=== PATIENT | male | born 1960 | race Caucasian/White ===

== ENCOUNTER 2017-08-31 19:25 | Emergency (ER) | payer MEDICARE, MEDICAID ==
[~2017-08-31] VITALS: Ht 180.3 cm; Wt 95.0 kg
[~2017-08-31 19:25] MED LIST: GABA-529 PO; GLIP5TAB12 PO; HYDR12.529 PO; LISI2.5T47 PO; LORA1TAB PO; METF500T4 PO; OMEP20CA10 PO; SERT-112 PO; TERA2CAP4 PO
[2017-08-31] MEDS ORDERED: SODIUM CHLORIDE 0.9% 1,000 ML IV ONE (19:41)
[2017-08-31] MEDS ORDERED: IPRATROPIUM/ALBUTEROL 0.5-3(2.5)MG/3ML NEB HHN ONE (19:45)
[2017-08-31 20:13] LABS: CLARITY URINE CLEAR (CLEAR); COLOR URINE YELLOW (YELLOW); KETONES URINE NEGATIVE (NEGATIVE); LEUKOCYTE ESTERASE URINE NEGATIVE (NEGATIVE); NITRITE URINE NEGATIVE (NEGATIVE); OCCULT BLOOD URINE NEGATIVE (NEGATIVE); PH URINE 5.5 (4.5-8.0); PROTEIN URINE TRACE (NEGATIVE); SPECIFIC GRAVITY URINE 1.044 (1.005-1.030)
[2017-08-31 20:37] LABS: BASOPHILS % 0.5 % (0.0-2.0); EOSINOPHILS % 1.6 % (0.0-5.0); HEMATOCRIT. 46.9 % (42.0-52.0); HEMOGLOBIN. 16.2 g/dL (14.0-18.0); LYMPHOCYTES % 30.6 % (20.0-50.0); MEAN CORPUSCULAR HEMOGLOBIN 30.6 pg (28.0-32.0); MEAN CORPUSCULAR VOLUME 88.3 fL (80.0-94.0); MEAN PLATELET VOLUME 8.4 fl (7.4-10.4); MONOCYTES % 8.8 % (2.0-8.0); NEUTROPHILS % 58.5 % (40.0-76.0); PLATELET 194 x1000/uL (130-400); RED BLOOD CELL COUNT 5.31 mill/uL (4.7-6.1)
[2017-08-31 20:44] LABS: INR 1.1; PROTHROMBIN TIME 10.9 sec (9.4-11.6)
[2017-08-31 20:45] LABS: CHLORIDE 102 mEq/L (98-107)
[2017-09-01 02:40] VITALS: BP 147/85
== END 2017-09-01 02:55 | disposition home or self-care (01) ==
LOC: ER 19:25
DX: J20.9 Acute bronchitis, unspecified (principal); E11.65 Type 2 diabetes mellitus with hyperglycemia; F41.9 Anxiety disorder, unspecified; F32.9 Major depressive disorder, single episode, unspecified; E78.00 Pure hypercholesterolemia, unspecified; I10 Essential (primary) hypertension; F17.200 Nicotine dependence, unspecified, uncomplicated; F10.20 Alcohol dependence, uncomplicated; Z71.6 Tobacco abuse counseling; Z79.84 Long term (current) use of oral hypoglycemic drugs
CPT/HCPCS: 36415; 71045; 80053; 81003; 85025; 85610; 87804; 93005; 96360; 99285; J7030

== ENCOUNTER 2018-12-17 12:25 | Emergency (ER) | payer MEDICARE, OTHER ==
[~2018-12-17] VITALS: Ht 180.3 cm; Wt 84.0 kg
[~2018-12-17 12:25] MED LIST changes: +METF-414 PO; -METF500T4 PO; -OMEP20CA10 PO; +OMEP20CA5 PO
[2018-12-17] MEDS ORDERED: SODIUM CHLORIDE 0.9% 1,000 ML IV ONE ×2 (13:40→18:00)
[2018-12-17] MEDS ORDERED: FAMOTIDINE 20MG/2ML VIAL IV STA (13:40)
[2018-12-17] MEDS ORDERED: MAGNESIUM/ALUMINUM HYDROXIDE/SIMETHICONE 30ML UDC PO STA (13:40)
[2018-12-17] MEDS ORDERED: LORAZEPAM 1MG TABLET PO ONE ×2 (13:45→16:45)
[2018-12-17 14:24] LABS: BASOPHILS % 0.5 % (0.0-2.0); EOSINOPHILS % 0.5 % (0.0-5.0); HEMATOCRIT. 48.1 % (42.0-52.0); HEMOGLOBIN. 16.8 g/dL (14.0-18.0); MEAN CORPUSCULAR HEMOGLOBIN 31.6 pg (28.0-32.0); MEAN CORPUSCULAR VOLUME 90.6 fL (80.0-94.0); MEAN PLATELET VOLUME 8.8 fl (7.4-10.4); MONOCYTES % 6.3 % (2.0-8.0); NEUTROPHILS % 73.7 % (40.0-76.0); PLATELET 236 x1000/uL (130-400); RED BLOOD CELL COUNT 5.31 mill/uL (4.7-6.1); RED CELL DISTRIBUTION WIDTH 13.7 % (11.6-14.6)
[2018-12-17 14:29] LABS: CHLORIDE 97 mEq/L (98-107)
[2018-12-17 14:30] LABS: INR 1.1; PROTHROMBIN TIME 11.4 sec (9.6-11.0)
[2018-12-17 14:34] LABS: ETHANOL BLOOD < 10 mg/dL
[2018-12-17] MEDS ORDERED: IOHEXOL-300 100 ML BOTTLE ONE (16:48)
[2018-12-17 17:01] LABS: CLARITY URINE CLEAR (CLEAR); COLOR URINE YELLOW (YELLOW); KETONES URINE 1+ (NEGATIVE); LEUKOCYTE ESTERASE URINE NEGATIVE (NEGATIVE); NITRITE URINE NEGATIVE (NEGATIVE); OCCULT BLOOD URINE NEGATIVE (NEGATIVE); PH URINE 6.5 (4.5-8.0); PROTEIN URINE 1+ (NEGATIVE); SPECIFIC GRAVITY URINE 1.039 (1.005-1.030)
[2018-12-17] MEDS ORDERED: INSULIN REGULAR 0.5UNIT/ML SYR(NEO) IV ONE (17:30)
[2018-12-17] MEDS ORDERED: INSULIN REGULAR (HUMULIN R) 300UNITS/3ML IV NR (17:45)
[2018-12-17 19:00] VITALS: BP 155/82
== END 2018-12-17 19:11 | disposition home or self-care (01) ==
LOC: ER 12:25
DX: F41.9 Anxiety disorder, unspecified (principal); R10.13 Epigastric pain; E11.65 Type 2 diabetes mellitus with hyperglycemia; I10 Essential (primary) hypertension; N40.0 Benign prostatic hyperplasia without lower urinary tract symptoms; F32.9 Major depressive disorder, single episode, unspecified; E78.00 Pure hypercholesterolemia, unspecified; Z98.1 Arthrodesis status; Z90.49 Acquired absence of other specified parts of digestive tract; Z79.84 Long term (current) use of oral hypoglycemic drugs
CPT/HCPCS: 36415; 74177; 80053; 80320; 81003; 82962; 83690; 85025; 85610; 96361; 96374; 96375; 99284; J1815; J3490; J7030; Q9967; G0480

== ENCOUNTER 2018-12-29 13:33 | Inpatient (IN) | payer MEDICARE, OTHER ==
[~2018-12-29] VITALS: Ht 180.3 cm; Wt 81.2 kg
[2018-12-29] MEDS ORDERED: SODIUM CHLORIDE 0.9% 1000ML BAG (SEPSIS BOLUS) IV ONE (18:15)
[2018-12-29] MEDS ORDERED: VANCOMYCIN 1 G PREMIX 200 ML IV ONE (18:15)
[2018-12-29] MEDS ORDERED: CEFTRIAXONE 1 G PREMIX 50 ML IV ONE (18:15)
[2018-12-29] MEDS ORDERED: LIDOCAINE 1%/EPI 1:100,000 10 ML VIAL IJ ONE (18:45)
[2018-12-29 18:48] LABS: HEMATOCRIT. 46.5 % (42.0-52.0); HEMOGLOBIN. 16.2 g/dL (14.0-18.0); MEAN CORPUSCULAR HEMOGLOBIN 31.8 pg (28.0-32.0); MEAN CORPUSCULAR VOLUME 91.5 fL (80.0-94.0); MEAN PLATELET VOLUME 8.4 fl (7.4-10.4); PLATELET 245 x1000/uL (130-400); RED BLOOD CELL COUNT 5.08 mill/uL (4.7-6.1); RED CELL DISTRIBUTION WIDTH 13.6 % (11.6-14.6)
[2018-12-29 18:50] LABS: CHLORIDE 94 mEq/L (98-107)
[2018-12-29 18:51] LABS: INR 1.1; PROTHROMBIN TIME 11.4 sec (9.6-11.0)
[2018-12-29 19:23] LABS: PLATELET ESTIMATE NORMAL
[2018-12-29] MEDS ORDERED: LIDOCAINE HCL/EPINEPHRINE 1%-EPI 1:100,000 20 ML VIAL INFIL NR (19:30)
[2018-12-29] MEDS ORDERED: MORPHINE SULFATE 4 MG/ML CPJ (NOT FOR IM USE) IV STA (20:23)
[2018-12-29] MEDS ORDERED: ONDANSETRON HCL 4MG/2ML INJ IV STA (20:23)
[2018-12-29] MEDS ORDERED: MAGNESIUM/ALUMINUM HYDROXIDE/SIMETHICONE 30ML UDC PO PRN (22:00)
[2018-12-29] MEDS ORDERED: LORAZEPAM 2MG/ML CPJ IV PRN (22:00)
[2018-12-29] MEDS ORDERED: DIPHENHYDRAMINE 50MG/ML VIAL IV PRN (22:00)
[2018-12-29] MEDS ORDERED: IPRATROPIUM/ALBUTEROL 0.5-3(2.5)MG/3ML NEB INH PRN (22:00)
[2018-12-29] MEDS ORDERED: PIPERACILLIN/TAZ 3.375G PREMIX 50 ML IV SCH (22:00)
[2018-12-29] MEDS ORDERED: NA PHOS,M-B/NA PHOS,DI-BA ENEMA 118ML PR PRN (22:00)
[2018-12-29] MEDS ORDERED: ONDANSETRON HCL 4MG/2ML INJ IV PRN (22:00)
[2018-12-29] MEDS ORDERED: GUAIFENESIN 200MG/10ML SUGAR FREE UDC PO PRN (22:00)
[2018-12-29] MEDS ORDERED: CLONIDINE 0.1MG TABLET PO PRN (22:00)
[2018-12-29] MEDS ORDERED: PIPERACILLIN/TAZ 3.375G PREMIX 50 ML IV NR (23:00)
[2018-12-29] MEDS ORDERED: POTASSIUM CHLORIDE 20MEQ TABLET SR PO ONE (23:30)
[2018-12-29 23:33] VITALS: BP 168/83
[2018-12-29] MEDS ORDERED: DEXTROSE 50% WATER 50ML SYRINGE IV PRN (23:45)
[2018-12-30] MEDS: MORPHINE SULFATE 2 MG/ML CPJ (NOT FOR IM USE) IV PRN ×4 (00:09→21:12)
[2018-12-30] MEDS: ACETAMINOPHEN 325MG TABLET PO PRN (00:21)
[2018-12-30] MEDS ORDERED: LISI-186 PO (00:45)
[2018-12-30] MEDS ORDERED: METF-416 PO (00:45)
[2018-12-30 00:46] VITALS: BP 168/83
[2018-12-30 01:02] LABS: CHLORIDE 99 mEq/L (98-107)
[2018-12-30] MEDS: HYDROCODONE/ACETAMINOPHEN 10/325MG TABLET PO PRN ×3 (02:03→19:02)
[2018-12-30 04:00] VITALS: BP 144/84
[2018-12-30] MEDS: VANCOMYCIN 1 G PREMIX 200 ML IV SCH ×3 (05:48→22:06)
[2018-12-30] MEDS: INSULIN LISPRO 100 UNITS/ML SUBCUT SCH ×4 (06:25→22:09)
[2018-12-30] MEDS: BLOOD SUGAR DIAGNOSTIC STRIP TEST SCH ×4 (06:26→21:00)
[2018-12-30 07:36] LABS: HEMATOCRIT. 39.7 % (42.0-52.0); HEMOGLOBIN. 13.9 g/dL (14.0-18.0); MEAN CORPUSCULAR VOLUME 91.7 fL (80.0-94.0); MEAN PLATELET VOLUME 8.9 fl (7.4-10.4); PLATELET 200 x1000/uL (130-400); RED BLOOD CELL COUNT 4.33 mill/uL (4.7-6.1); RED CELL DISTRIBUTION WIDTH 13.8 % (11.6-14.6)
[2018-12-30 08:00] VITALS: BP 156/82
[2018-12-30] MEDS ORDERED: PIPERACILLIN/TAZ 3.375G PREMIX 50 ML IV SCH (08:00)
[2018-12-30] MEDS: ENOXAPARIN 40MG/0.4ML SYR SUBCUT SCH (08:34)
[2018-12-30 08:39] LABS: CLARITY URINE CLEAR (CLEAR); COLOR URINE DARK YELLOW (YELLOW); PH URINE 6.5 (4.5-8.0); SPECIFIC GRAVITY URINE 1.035 (1.005-1.030)
[2018-12-30 08:40] LABS: PROTEIN URINE 2+ (NEGATIVE)
[2018-12-30 08:45] LABS: KETONES URINE 1+ (NEGATIVE); LEUKOCYTE ESTERASE URINE NEGATIVE (NEGATIVE); NITRITE URINE POSITIVE (NEGATIVE); OCCULT BLOOD URINE NEGATIVE (NEGATIVE)
[2018-12-30 10:38] LABS: CHLORIDE 100 mEq/L (98-107)
[2018-12-30 10:46] LABS: LDL CHOLESTEROL 98 mg/dL (5-100)
[2018-12-30 10:47] LABS: HDL CHOLESTEROL 19 mg/dL (40-59)
[2018-12-30 12:00] VITALS: BP 155/82
[2018-12-30 14:11] LABS: PLATELET ESTIMATE NORMAL
[2018-12-30] MEDS ORDERED: IPRATROPIUM/ALBUTEROL 0.5-3(2.5)MG/3ML NEB HHN PRN (14:15)
[2018-12-30] MEDS: PIPERACILLIN/TAZOBACTAM 3.375 G in DEXT 5% WATER 100 ML IV SCH ×2 (14:40→19:05)
[2018-12-30] MEDS: NICOTINE 21MG PATCH TD SCH (14:47)
[2018-12-30] MEDS: MULTIVITAMINS,THER W-MINERALS TABLET PO SCH (14:47)
[2018-12-30] MEDS: FOLIC ACID 1MG TABLET PO SCH (14:47)
[2018-12-30] MEDS: THIAMINE HCL 100MG TABLET PO SCH (14:47)
[2018-12-30 15:35] LABS: *AMPHETAMINES SCREEN URINE NEGATIVE (NEGATIVE); *BARBITURATES SCREEN URINE NEGATIVE (NEGATIVE); *BENZODIAZEPINES SCREEN URINE NEGATIVE (NEGATIVE); *COCAINE SCREEN URINE NEGATIVE (NEGATIVE)
[2018-12-30 15:36] LABS: CANNABINOID URINE SCREEN PRESUMTIVE POSITIVE (NEGATIVE); METHADONE URINE SCREEN NEGATIVE (NEGATIVE); OPIATES URINE SCREEN PRESUMTIVE POSITIVE (NEGATIVE); PHENCYCLIDINE URINE SCREEN NEGATIVE (NEGATIVE)
[2018-12-30 16:00] VITALS: BP 157/78
[2018-12-30 18:01] LABS: PHOSPHORUS 2.1 mg/dL (2.5-4.9)
[2018-12-30 20:00] VITALS: BP 140/60
[2018-12-30] MEDS: IPRATROPIUM/ALBUTEROL 0.5-3(2.5)MG/3ML NEB HHN SCH (21:02)
[2018-12-31] VITALS: BP 152/83
[2018-12-31] MEDS: PIPERACILLIN/TAZOBACTAM 3.375 G in DEXT 5% WATER 100 ML IV SCH ×4 (01:00→16:59)
[2018-12-31] MEDS: MORPHINE SULFATE 2 MG/ML CPJ (NOT FOR IM USE) IV PRN ×3 (01:36→17:36)
[2018-12-31] MEDS: IPRATROPIUM/ALBUTEROL 0.5-3(2.5)MG/3ML NEB HHN SCH ×4 (01:47→21:42)
[2018-12-31] MEDS: HYDROCODONE/ACETAMINOPHEN 10/325MG TABLET PO PRN ×4 (02:41→21:27)
[2018-12-31 04:00] VITALS: BP 132/74
[2018-12-31 04:35] LABS: CHLORIDE 98 mEq/L (98-107)
[2018-12-31 04:45] LABS: VANCOMYCIN TROUGH 10.5 ug/mL (5.0-10.0)
[2018-12-31 05:14] LABS: HEMATOCRIT. 36.8 % (42.0-52.0); MEAN CORPUSCULAR VOLUME 90.6 fL (80.0-94.0); MEAN PLATELET VOLUME 8.4 fl (7.4-10.4); PLATELET 177 x1000/uL (130-400); RED BLOOD CELL COUNT 4.06 mill/uL (4.7-6.1); RED CELL DISTRIBUTION WIDTH 13.4 % (11.6-14.6)
[2018-12-31] MEDS: BLOOD SUGAR DIAGNOSTIC STRIP TEST SCH ×4 (06:17→21:35)
[2018-12-31] MEDS: VANCOMYCIN 1 G PREMIX 200 ML IV SCH (06:17)
[2018-12-31] MEDS: LORAZEPAM 2MG/ML CPJ IV PRN ×2 (06:35→22:39)
[2018-12-31] MEDS: INSULIN LISPRO 100 UNITS/ML SUBCUT SCH ×4 (06:36→21:00)
[2018-12-31] MEDS ORDERED: POTASSIUM CHLORIDE 20MEQ TABLET SR PO NR ×2 (07:15→20:00)
[2018-12-31 08:00] VITALS: BP 122/73
[2018-12-31] MEDS: FOLIC ACID 1MG TABLET PO SCH (08:15)
[2018-12-31] MEDS: NICOTINE 21MG PATCH TD SCH (08:15)
[2018-12-31] MEDS: MULTIVITAMINS,THER W-MINERALS TABLET PO SCH (08:15)
[2018-12-31] MEDS: THIAMINE HCL 100MG TABLET PO SCH (08:15)
[2018-12-31] MEDS: ENOXAPARIN 40MG/0.4ML SYR SUBCUT SCH (08:16)
[2018-12-31 09:02] LABS: PLATELET ESTIMATE NORMAL
[2018-12-31] MEDS ORDERED: IOHEXOL-300 100 ML BOTTLE ONE (11:59)
[2018-12-31 12:00] VITALS: BP 137/74
[2018-12-31 14:00] LABS: HEPATITIS B SURFACE ANTIGEN NEGATIVE
[2018-12-31 14:30] LABS: HEPATITIS A AB IGM NEGATIVE (NEGATIVE)
[2018-12-31] MEDS: VANCOMYCIN 1500MG in DEXTROSE 5% WATER 250ML IV SCH ×2 (14:59→21:27)
[2018-12-31 16:00] VITALS: BP 131/79
[2018-12-31] MEDS: DOCUSATE SODIUM 100MG CAPSULE PO PRN (18:14)
[2018-12-31 20:00] VITALS: BP 148/84
[2019-01-01] VITALS: BP_SYST 120; BP_SYST 121; BP_DIAS 68; BP_DIAS 74
[2019-01-01] MEDS: PIPERACILLIN/TAZOBACTAM 3.375 G in DEXT 5% WATER 100 ML IV SCH ×2 (00:51→11:49)
[2019-01-01] MEDS: MORPHINE SULFATE 2 MG/ML CPJ (NOT FOR IM USE) IV PRN ×3 (00:52→20:43)
[2019-01-01] MEDS: IPRATROPIUM/ALBUTEROL 0.5-3(2.5)MG/3ML NEB HHN SCH ×4 (02:36→20:32)
[2019-01-01 04:00] VITALS: BP 130/79
[2019-01-01 05:15] LABS: HIV SCREEN 4G Non Reactive (Non Reactive)
[2019-01-01] MEDS: VANCOMYCIN 1500MG in DEXTROSE 5% WATER 250ML IV SCH (05:53)
[2019-01-01 07:38] LABS: HEMATOCRIT. 37.1 % (42.0-52.0); HEMOGLOBIN. 13.1 g/dL (14.0-18.0); MEAN CORPUSCULAR HEMOGLOBIN 32.1 pg (28.0-32.0); MEAN CORPUSCULAR VOLUME 91.1 fL (80.0-94.0); MEAN PLATELET VOLUME 8.2 fl (7.4-10.4); PLATELET 207 x1000/uL (130-400); RED BLOOD CELL COUNT 4.07 mill/uL (4.7-6.1); RED CELL DISTRIBUTION WIDTH 13.8 % (11.6-14.6)
[2019-01-01 07:39] LABS: CHLORIDE 98 mEq/L (98-107)
[2019-01-01] MEDS: BLOOD SUGAR DIAGNOSTIC STRIP TEST SCH ×4 (07:59→20:43)
[2019-01-01 08:00] VITALS: BP 149/81
[2019-01-01] MEDS: ENOXAPARIN 40MG/0.4ML SYR SUBCUT SCH (08:40)
[2019-01-01] MEDS: NICOTINE 21MG PATCH TD SCH (08:40)
[2019-01-01] MEDS: MULTIVITAMINS,THER W-MINERALS TABLET PO SCH (08:40)
[2019-01-01] MEDS: FOLIC ACID 1MG TABLET PO SCH (08:40)
[2019-01-01] MEDS: THIAMINE HCL 100MG TABLET PO SCH (08:40)
[2019-01-01] MEDS: INSULIN LISPRO 100 UNITS/ML SUBCUT SCH ×4 (08:57→20:20)
[2019-01-01] MEDS: LORAZEPAM 2MG/ML CPJ IV PRN ×2 (10:03→22:21)
[2019-01-01 11:37] VITALS: BP 150/86
[2019-01-01] MEDS: HYDROCODONE/ACETAMINOPHEN 10/325MG TABLET PO PRN ×2 (11:49→17:44)
[2019-01-01 15:35] VITALS: BP 141/81
[2019-01-01] MEDS: NAFCILLIN SODIUM 1,000 MG in SODIUM CHLORIDE 0.9% 50 ML IV SCH ×3 (17:44→23:34)
[2019-01-01 18:31] LABS: PLATELET ESTIMATE NORMAL
[2019-01-01 20:00] VITALS: BP 148/80
[2019-01-02] VITALS: BP 140/78
[2019-01-02] MEDS: IPRATROPIUM/ALBUTEROL 0.5-3(2.5)MG/3ML NEB HHN SCH ×4 (01:17→21:44)
[2019-01-02] MEDS: MORPHINE SULFATE 2 MG/ML CPJ (NOT FOR IM USE) IV PRN ×3 (03:16→20:27)
[2019-01-02 04:00] VITALS: BP 142/78
[2019-01-02] MEDS: NAFCILLIN SODIUM 1,000 MG in SODIUM CHLORIDE 0.9% 50 ML IV SCH ×2 (05:05→09:05)
[2019-01-02] MEDS: BLOOD SUGAR DIAGNOSTIC STRIP TEST SCH ×4 (06:29→21:04)
[2019-01-02 08:00] LABS: HEMATOCRIT 38.7 % (42.0-52.0); HEMOGLOBIN 13.4 g/dL (14.0-18.0); MEAN CORPUSCULAR HEMOGLOBIN 31.7 pg (28.0-32.0); MEAN CORPUSCULAR VOLUME 91.8 fL (80.0-94.0); PLATELET 229 x1000/uL (130-400); RED BLOOD CELL COUNT 4.21 mill/uL (4.7-6.1); RED CELL DISTRIBUTION WIDTH 13.7 % (11.6-14.6)
[2019-01-02] MEDS: NICOTINE 21MG PATCH TD SCH (09:05)
[2019-01-02] MEDS: FOLIC ACID 1MG TABLET PO SCH (09:05)
[2019-01-02] MEDS: THIAMINE HCL 100MG TABLET PO SCH (09:05)
[2019-01-02] MEDS: MULTIVITAMINS,THER W-MINERALS TABLET PO SCH (09:06)
[2019-01-02] MEDS: LORAZEPAM 2MG/ML CPJ IV PRN (09:06)
[2019-01-02] MEDS: ENOXAPARIN 40MG/0.4ML SYR SUBCUT SCH (09:07)
[2019-01-02] MEDS: INSULIN LISPRO 100 UNITS/ML SUBCUT SCH ×4 (09:17→21:03)
[2019-01-02] MEDS: HYDROCODONE/ACETAMINOPHEN 10/325MG TABLET PO PRN ×2 (12:51→23:32)
[2019-01-02] MEDS ORDERED: SODIUM CHLORIDE 0.9% IV SCH (13:00)
[2019-01-02] MEDS ORDERED: NAFCILLIN SODIUM IV SCH (13:00)
[2019-01-02] MEDS: SODIUM CHLORIDE 0.9% IV SCH ×3 (16:20→21:39)
[2019-01-02] MEDS: NAFCILLIN SODIUM IV SCH ×3 (16:20→21:39)
[2019-01-02 20:00] VITALS: BP 161/88
[2019-01-02] MEDS: ACETAMINOPHEN 325MG TABLET PO PRN (20:27)
[2019-01-03] VITALS: BP 155/87
[2019-01-03] MEDS: LORAZEPAM 2MG/ML CPJ IV PRN ×3 (01:15→18:47)
[2019-01-03] MEDS: NAFCILLIN SODIUM IV SCH ×6 (01:30→22:05)
[2019-01-03] MEDS: SODIUM CHLORIDE 0.9% IV SCH ×6 (01:30→22:05)
[2019-01-03 04:00] VITALS: BP 140/67
[2019-01-03] MEDS: IPRATROPIUM/ALBUTEROL 0.5-3(2.5)MG/3ML NEB HHN SCH ×4 (04:10→21:34)
[2019-01-03] MEDS: MORPHINE SULFATE 2 MG/ML CPJ (NOT FOR IM USE) IV PRN ×3 (06:22→22:57)
[2019-01-03] MEDS: BLOOD SUGAR DIAGNOSTIC STRIP TEST SCH ×4 (06:31→21:00)
[2019-01-03 06:34] LABS: BASOPHILS % 0.5 % (0.0-2.0); EOSINOPHILS % 2.7 % (0.0-5.0); HEMATOCRIT. 38.8 % (42.0-52.0); HEMOGLOBIN. 13.5 g/dL (14.0-18.0); LYMPHOCYTES % 16.3 % (20.0-50.0); MEAN CORPUSCULAR HEMOGLOBIN 31.8 pg (28.0-32.0); MEAN CORPUSCULAR VOLUME 91.4 fL (80.0-94.0); MEAN PLATELET VOLUME 8.1 fl (7.4-10.4); MONOCYTES % 7.3 % (2.0-8.0); NEUTROPHILS % 73.2 % (40.0-76.0); PLATELET 267 x1000/uL (130-400); RED BLOOD CELL COUNT 4.25 mill/uL (4.7-6.1); RED CELL DISTRIBUTION WIDTH 13.4 % (11.6-14.6)
[2019-01-03 06:51] LABS: CHLORIDE 99 mEq/L (98-107)
[2019-01-03 08:00] VITALS: BP 163/84
[2019-01-03] MEDS: INSULIN LISPRO 100 UNITS/ML SUBCUT SCH ×4 (08:07→22:15)
[2019-01-03] MEDS: NICOTINE 21MG PATCH TD SCH (08:55)
[2019-01-03] MEDS: FOLIC ACID 1MG TABLET PO SCH (08:55)
[2019-01-03] MEDS: THIAMINE HCL 100MG TABLET PO SCH (08:55)
[2019-01-03] MEDS: MULTIVITAMINS,THER W-MINERALS TABLET PO SCH (08:55)
[2019-01-03] MEDS: ENOXAPARIN 40MG/0.4ML SYR SUBCUT SCH (09:00)
[2019-01-03] MEDS: HYDROCODONE/ACETAMINOPHEN 10/325MG TABLET PO PRN ×2 (09:00→18:06)
[2019-01-03 12:00] VITALS: BP 113/76
[2019-01-03 16:00] VITALS: BP 151/77
[2019-01-03] MEDS ORDERED: LIDOCAINE HCL/PF 1% 10 MG/ML 5ML VIAL IJ SCH (17:30)
[2019-01-03 20:00] VITALS: BP 165/82
[2019-01-04] VITALS: BP 131/80
[2019-01-04] MEDS: NAFCILLIN SODIUM IV SCH ×6 (01:48→21:20)
[2019-01-04] MEDS: SODIUM CHLORIDE 0.9% IV SCH ×6 (01:48→21:20)
[2019-01-04] MEDS: LORAZEPAM 2MG/ML CPJ IV PRN ×3 (01:53→21:53)
[2019-01-04 04:00] VITALS: BP 164/82
[2019-01-04] MEDS: IPRATROPIUM/ALBUTEROL 0.5-3(2.5)MG/3ML NEB HHN SCH ×4 (04:11→20:58)
[2019-01-04] MEDS: MORPHINE SULFATE 2 MG/ML CPJ (NOT FOR IM USE) IV PRN ×3 (07:02→20:21)
[2019-01-04] MEDS: BLOOD SUGAR DIAGNOSTIC STRIP TEST SCH ×4 (07:53→21:00)
[2019-01-04 08:00] VITALS: BP 156/86
[2019-01-04] MEDS: NICOTINE 21MG PATCH TD SCH (08:12)
[2019-01-04] MEDS: MULTIVITAMINS,THER W-MINERALS TABLET PO SCH (08:13)
[2019-01-04] MEDS: ENOXAPARIN 40MG/0.4ML SYR SUBCUT SCH (08:13)
[2019-01-04] MEDS: DOCUSATE SODIUM 100MG CAPSULE PO PRN (08:13)
[2019-01-04] MEDS: THIAMINE HCL 100MG TABLET PO SCH (08:13)
[2019-01-04] MEDS: FOLIC ACID 1MG TABLET PO SCH (08:13)
[2019-01-04] MEDS: INSULIN LISPRO 100 UNITS/ML SUBCUT SCH ×4 (08:16→21:00)
[2019-01-04 12:00] VITALS: BP 153/88
[2019-01-04 16:00] VITALS: BP 162/90
[2019-01-04] MEDS: HYDROCODONE/ACETAMINOPHEN 10/325MG TABLET PO PRN ×2 (16:43→21:53)
[2019-01-04 20:00] VITALS: BP 144/83
[2019-01-05] VITALS: BP 141/79
[2019-01-05] MEDS: SODIUM CHLORIDE 0.9% IV SCH ×5 (02:16→18:00)
[2019-01-05] MEDS: NAFCILLIN SODIUM IV SCH ×5 (02:16→18:00)
[2019-01-05] MEDS: IPRATROPIUM/ALBUTEROL 0.5-3(2.5)MG/3ML NEB HHN SCH ×3 (02:35→14:56)
[2019-01-05] MEDS: MORPHINE SULFATE 2 MG/ML CPJ (NOT FOR IM USE) IV PRN ×4 (02:41→17:49)
[2019-01-05 04:00] VITALS: BP 162/84
[2019-01-05] MEDS: HYDROCODONE/ACETAMINOPHEN 10/325MG TABLET PO PRN (05:50)
[2019-01-05] MEDS: LORAZEPAM 2MG/ML CPJ IV PRN ×2 (06:33→16:15)
[2019-01-05] MEDS: BLOOD SUGAR DIAGNOSTIC STRIP TEST SCH ×3 (07:49→17:48)
[2019-01-05 08:00] VITALS: BP 152/83
[2019-01-05] MEDS: MULTIVITAMINS,THER W-MINERALS TABLET PO SCH (08:14)
[2019-01-05] MEDS: FOLIC ACID 1MG TABLET PO SCH (08:14)
[2019-01-05] MEDS: THIAMINE HCL 100MG TABLET PO SCH (08:14)
[2019-01-05] MEDS: ENOXAPARIN 40MG/0.4ML SYR SUBCUT SCH (08:15)
[2019-01-05] MEDS: INSULIN LISPRO 100 UNITS/ML SUBCUT SCH ×3 (08:24→18:34)
[2019-01-05] MEDS: NICOTINE 21MG PATCH TD SCH (08:25)
[2019-01-05 12:03] VITALS: BP 154/87
[2019-01-05 16:00] VITALS: BP 154/87
[2019-01-05 18:13] VITALS: BP 154/87
== END 2019-01-05 19:06 | DRG 872 ==
LOC: ER 14:33 → 5WST 21:34 → EDBEDREQSVC 21:37 → EDBEDREQ 21:37 → EDBEDREQTM 21:37 → ENRESERV 22:58 → 6EST 12-30 21:05
PROVIDERS: ADMIT Internal Medicine; ATTEND Internal Medicine
PROC: 0H96XZZ Drainage of Back Skin, External Approach (ICD-10-PCS; 2018-12-29)
PROC: 0H96XZZ Drainage of Back Skin, External Approach (ICD-10-PCS; principal; 2019-01-03)
PROC: 02HV33Z Insertion of Infusion Device into Superior Vena Cava, Percutaneous Approach (ICD-10-PCS; 2019-01-05)
PROC: B5181ZA Fluoroscopy of Superior Vena Cava using Low Osmolar Contrast, Guidance (ICD-10-PCS; 2019-01-05)
PROC: B548ZZA Ultrasonography of Superior Vena Cava, Guidance (ICD-10-PCS; 2019-01-05)
DX: A41.01 Sepsis due to Methicillin susceptible Staphylococcus aureus (principal); L02.212 Cutaneous abscess of back [any part, except buttock and flank]; L03.312 Cellulitis of back [any part except buttock and flank]; N39.0 Urinary tract infection, site not specified; J98.11 Atelectasis; L03.113 Cellulitis of right upper limb; F17.210 Nicotine dependence, cigarettes, uncomplicated; D64.9 Anemia, unspecified; E11.22 Type 2 diabetes mellitus with diabetic chronic kidney disease; E78.00 Pure hypercholesterolemia, unspecified; E78.5 Hyperlipidemia, unspecified; L40.9 Psoriasis, unspecified; F10.10 Alcohol abuse, uncomplicated; F32.9 Major depressive disorder, single episode, unspecified; F41.9 Anxiety disorder, unspecified; E11.42 Type 2 diabetes mellitus with diabetic polyneuropathy; I12.9 Hypertensive chronic kidney disease with stage 1 through stage 4 chronic kidney disease, or unspecified chronic kidney disease; I25.10 Atherosclerotic heart disease of native coronary artery without angina pectoris; J44.9 Chronic obstructive pulmonary disease, unspecified; K21.9 Gastro-esophageal reflux disease without esophagitis; K74.60 Unspecified cirrhosis of liver; N18.9 Chronic kidney disease, unspecified; N40.0 Benign prostatic hyperplasia without lower urinary tract symptoms; Z79.899 Other long term (current) drug therapy; Z79.84 Long term (current) use of oral hypoglycemic drugs; Z90.49 Acquired absence of other specified parts of digestive tract
CPT/HCPCS: 36415; 36573; 71045; 71260; 80048; 80061; 80202; 80305; 82693; 82962; 83605; 83735; 84100; 84145; 84484; 85027; 85651; 86140; 86694; 86705; 86709; 86803; 87077; 87340; 87389; 93005; 93306; 94640; 96374; 99285; C1725; J0696; J1650; J1815; J2060; J2270; J2405; J2543; J3370; J3490; J7030; J7050; J7060; J7620; Q9967

== ENCOUNTER 2019-05-11 16:31 | Emergency (ER) | payer MEDICARE, MEDICAID ==
[~2019-05-11] VITALS: Ht 177.8 cm; Wt 80.0 kg
[~2019-05-11 16:31] MED LIST changes: +LISI-186 PO; -LISI2.5T47 PO; -METF-414 PO; +METF-416 PO
[2019-05-11 16:33] VITALS: BP 173/100
== END 2019-05-11 23:30 | disposition left against medical advice (07) ==
LOC: ER 16:31
DX: Z53.21 Procedure and treatment not carried out due to patient leaving prior to being seen by health care provider (principal)

== ENCOUNTER 2021-06-19 21:59 | Inpatient (IN) | payer OTHER, MEDICAID ==
[~2021-06-19] VITALS: Ht 180.3 cm; Wt 84.8 kg
[~2021-06-19 21:59] MED LIST changes: +OMEP20CA14 PO; -OMEP20CA5 PO
[2021-06-19] MEDS ORDERED: MORPHINE SULFATE 4 MG/ML CPJ (NOT FOR IM USE) IV STA (23:20)
[2021-06-19] MEDS ORDERED: ONDANSETRON HCL 4MG/2ML INJ IV STA (23:20)
[2021-06-19] MEDS ORDERED: INSULIN REGULAR (HUMULIN R) 300UNITS/3ML VIAL SUBCUT ONE (23:30)
[2021-06-19] MEDS ORDERED: SODIUM CHLORIDE 0.9% 1,000 ML IV ONE (23:30)
[2021-06-19 23:44] LABS: CHLORIDE 106 mEq/L (98-107)
[2021-06-19 23:51] LABS: BETA HYDROXYBUTYRATE 0.1 mMol/L (0.0-0.3)
[2021-06-19 23:57] LABS: BASOPHILS % 0.6 % (0.0-2.0); EOSINOPHILS % 1.9 % (0.0-5.0); HEMATOCRIT. 39.5 % (42.0-52.0); HEMOGLOBIN. 13.4 g/dL (14.0-18.0); LYMPHOCYTES % 27.6 % (20.0-50.0); MEAN CORPUSCULAR HEMOGLOBIN 29.7 pg (28.0-32.0); MEAN CORPUSCULAR VOLUME 87.5 fL (80.0-94.0); MEAN PLATELET VOLUME 9.1 fl (7.4-10.4); MONOCYTES % 7.5 % (2.0-8.0); NEUTROPHILS % 62.4 % (40.0-76.0); PLATELET 210 x1000/uL (130-400); RED BLOOD CELL COUNT 4.52 mill/uL (4.7-6.1); RED CELL DISTRIBUTION WIDTH 15.3 % (11.6-14.6)
[2021-06-20] MEDS ORDERED: MORPHINE SULFATE 4 MG/ML CPJ (NOT FOR IM USE) IV ONE (00:45)
[2021-06-20] MEDS ORDERED: ASPIRIN 325MG TABLET PO ONE (04:45)
[2021-06-20] MEDS ORDERED: IPRATROPIUM/ALBUTEROL 0.5-3(2.5)MG/3ML NEB HHN PRN (07:15)
[2021-06-20] MEDS ORDERED: GUAIFENESIN 200MG/10ML SUGAR FREE UDC PO PRN (07:15)
[2021-06-20] MEDS ORDERED: DEXTROSE 50% WATER 50ML SYRINGE IV PRN (07:15)
[2021-06-20] MEDS ORDERED: DOCUSATE SODIUM 100MG CAPSULE PO PRN (07:15)
[2021-06-20] MEDS ORDERED: MAGNESIUM/ALUMINUM HYDROXIDE/SIMETHICONE 30ML UDC PO PRN (07:15)
[2021-06-20] MEDS ORDERED: ONDANSETRON HCL 4MG/2ML INJ IV PRN (07:15)
[2021-06-20] MEDS ORDERED: ACETAMINOPHEN 325MG TABLET PO PRN (07:15)
[2021-06-20] MEDS ORDERED: NITROGLYCERIN 0.4MG TABLET SL SL PRN (07:15)
[2021-06-20] MEDS: INSULIN LISPRO 100 UNITS/ML SUBCUT SCH ×4 (08:20→21:25)
[2021-06-20] MEDS: KETOROLAC 15MG/ML VIAL IV PRN ×3 (08:22→19:35)
[2021-06-20] MEDS: FAMOTIDINE 20MG TABLET PO SCH ×2 (08:22→21:24)
[2021-06-20] MEDS ORDERED: ENOXAPARIN 40MG/0.4ML SYR SUBCUT SCH (09:00)
[2021-06-20] MEDS ORDERED: ASPIRIN 325MG EC TABLET PO SCH (09:00)
[2021-06-20] MEDS: BLOOD SUGAR DIAGNOSTIC STRIP TEST SCH ×4 (09:34→21:23)
[2021-06-20 10:28] LABS: FOLIC ACID (FOLATE) SERUM 11.2 ng/mL (>5.38)
[2021-06-20] MEDS: CLONIDINE 0.1MG TABLET PO PRN ×2 (13:39→18:46)
[2021-06-20 16:13] LABS: CREATINE KINASE 184 IU/L (39-308)
[2021-06-20 16:14] LABS: CREATINE KINASE MB FRACTION 2.2 ng/mL (0.5-3.6)
[2021-06-20] MEDS: ACETAMINOPHEN 325MG TABLET PO PRN (17:47)
[2021-06-20] MEDS ORDERED: ZOLPIDEM TARTRATE 5MG TABLET PO PRN (21:00)
[2021-06-20 22:44] LABS: CREATINE KINASE 192 IU/L (39-308)
[2021-06-20 22:45] LABS: CREATINE KINASE MB FRACTION 2.3 ng/mL (0.5-3.6)
[2021-06-20 23:00] VITALS: BP 160/80
[2021-06-21] VITALS: BP 150/84
[2021-06-21] MEDS: ACETAMINOPHEN 325MG TABLET PO PRN ×2 (00:44→07:08)
[2021-06-21 04:00] VITALS: BP 168/94
[2021-06-21] MEDS: KETOROLAC 15MG/ML VIAL IV PRN (04:24)
[2021-06-21] MEDS: BLOOD SUGAR DIAGNOSTIC STRIP TEST SCH (06:21)
[2021-06-21] MEDS: INSULIN LISPRO 100 UNITS/ML SUBCUT SCH (06:26)
[2021-06-21] MEDS: CLONIDINE 0.1MG TABLET PO PRN (07:08)
[2021-06-21 08:00] VITALS: BP 159/86
[2021-06-21 08:58] LABS: *AMPHETAMINES SCREEN URINE NEGATIVE (NEGATIVE); *BARBITURATES SCREEN URINE NEGATIVE (NEGATIVE); *BENZODIAZEPINES SCREEN URINE NEGATIVE (NEGATIVE); *COCAINE SCREEN URINE NEGATIVE (NEGATIVE); METHADONE URINE SCREEN NEGATIVE (NEGATIVE)
[2021-06-21 08:59] LABS: CANNABINOID URINE SCREEN PRESUMTIVE POSITIVE (NEGATIVE); OPIATES URINE SCREEN NEGATIVE (NEGATIVE); PHENCYCLIDINE URINE SCREEN NEGATIVE (NEGATIVE)
[2021-06-21 09:06] LABS: CLARITY URINE CLEAR (CLEAR); COLOR URINE YELLOW (YELLOW)
[2021-06-21 09:07] LABS: KETONES URINE 1+ (NEGATIVE); NITRITE URINE NEGATIVE (NEGATIVE); OCCULT BLOOD URINE NEGATIVE (NEGATIVE); PROTEIN URINE 2+ (NEGATIVE)
[2021-06-21 09:08] LABS: LEUKOCYTE ESTERASE URINE NEGATIVE (NEGATIVE)
[2021-06-21] MEDS ORDERED: TAMSULOSIN HCL 0.4MG SR CAPSULE PO SCH (10:30)
[2021-06-21 10:34] LABS: BASOPHILS % 0.7 % (0.0-2.0); EOSINOPHILS % 1.6 % (0.0-5.0); HEMATOCRIT. 45.4 % (42.0-52.0); HEMOGLOBIN. 15.1 g/dL (14.0-18.0); LYMPHOCYTES % 16.7 % (20.0-50.0); MEAN CORPUSCULAR HEMOGLOBIN 29.1 pg (28.0-32.0); MEAN CORPUSCULAR VOLUME 87.6 fL (80.0-94.0); MEAN PLATELET VOLUME 9.5 fl (7.4-10.4); MONOCYTES % 6.6 % (2.0-8.0); NEUTROPHILS % 74.4 % (40.0-76.0); PLATELET 244 x1000/uL (130-400); RED BLOOD CELL COUNT 5.19 mill/uL (4.7-6.1); RED CELL DISTRIBUTION WIDTH 15.1 % (11.6-14.6)
[2021-06-21 10:42] LABS: CHLORIDE 102 mEq/L (98-107)
[2021-06-21 10:52] LABS: PHOSPHORUS 2.3 mg/dL (2.5-4.9)
[2021-06-21] MEDS ORDERED: GABAPENTIN 100MG CAPSULE PO SCH (14:00)
[2021-06-21] MEDS ORDERED: LISINOPRIL 20MG TABLET PO SCH (21:00)
== END 2021-06-21 10:55 | disposition left against medical advice (07) | DRG 64 ==
LOC: ER 21:59 → 8WST 06-20 04:45 → ENRESERV 06-20 21:42
PROVIDERS: ADMIT Internal Medicine; ATTEND Internal Medicine
DX: I63.9 Cerebral infarction, unspecified (principal); G92.8 Other toxic encephalopathy; E44.0 Moderate protein-calorie malnutrition; E11.65 Type 2 diabetes mellitus with hyperglycemia; I10 Essential (primary) hypertension; R29.810 Facial weakness; M54.12 Radiculopathy, cervical region; Z20.822 Contact with and (suspected) exposure to COVID-19; Z53.29 Procedure and treatment not carried out because of patient's decision for other reasons; Z68.26 Body mass index [BMI] 26.0-26.9, adult; Z90.49 Acquired absence of other specified parts of digestive tract
CPT/HCPCS: 36415; 71045; 80053; 80305; 81003; 82010; 82962; 83735; 84100; 85025; 93005; 93970; 96374; 96375; 96376; 99291; J1650; J1815; J1885; J2270; J2405; J7030

== ENCOUNTER 2024-12-30 13:47 | Emergency (ER) | payer OTHER, MEDICAID ==
[~2024-12-30] VITALS: Ht 180.3 cm; Wt 105.0 kg
[~2024-12-30 13:47] MED LIST changes: -GLIP5TAB12 PO; +GLIP5TAB22 PO
[2024-12-30 13:50] VITALS: O2SAT 96
[2024-12-30] MEDS: SODIUM CHLORIDE 0.9% 500 ML IV ONE (14:50)
[2024-12-30] MEDS: PIPERACILLIN/TAZO 3.375G/50ML 50 ML IV ONE (14:50)
[2024-12-30 15:00] LABS: BASOPHILS % 0.4 % (0.0-2.0); EOSINOPHILS % 1.1 % (0.0-5.0); HEMATOCRIT. 42.2 % (42.0-52.0); HEMOGLOBIN. 14.4 g/dL (14.0-18.0); LYMPHOCYTES % 13.3 % (20.0-50.0); MEAN PLATELET VOLUME 9.1 fl (7.4-10.4); MONOCYTES % 5.5 % (2.0-8.0); NEUTROPHILS % 79.7 % (40.0-76.0); PLATELET 159 x1000/uL (130-400); RED BLOOD CELL COUNT 4.36 mill/uL (4.7-6.1); RED CELL DISTRIBUTION WIDTH 14.4 % (11.6-14.6)
[2024-12-30 15:13] LABS: INR 1.1
[2024-12-30 15:15] LABS: CREATININE 1.9 mg/dL (0.6-1.3); ETHANOL BLOOD < 10 mg/dL (<10); UREA NITROGEN BLOOD 26 mg/dL (9-23)
[2024-12-30 15:16] LABS: TROPONIN I HIGH SENSITIVITY 10 ng/L (3.0-53)
[2024-12-30 15:17] LABS: ASPARTATE AMINOTRANSFERASE 39 IU/L (<34); BILIRUBIN DIRECT 0.3 mg/dL (<=3.0); BILIRUBIN TOTAL 0.8 mg/dL (0.1-1.0); PROTEIN TOTAL 7.7 g/dL (6.0-8.3)
[2024-12-30] MEDS: VANCOMYCIN 1G PREMIX 200 ML IV ONE (16:18)
[2024-12-30 16:30] VITALS: TEMP 36.7
[2024-12-30 20:08] VITALS: TEMP 98.06
[2024-12-30] MEDS ORDERED: IPRATROPIUM/ALBUTEROL 0.5-3(2.5)MG/3ML NEB HHN ONE (20:15)
[2024-12-30 21:34] VITALS: BP 168/66; PULSE 100; RESP 12; O2SAT 97
[2024-12-30] MEDS ORDERED: IPRATROPIUM/ALBUTEROL 0.5-3(2.5)MG/3ML NEB HHN PRN (21:45)
[2024-12-30] MEDS ORDERED: DOCUSATE SODIUM 100MG CAPSULE PO PRN (21:45)
[2024-12-30] MEDS ORDERED: ONDANSETRON HCL 4MG/2ML INJ IV PRN (21:45)
[2024-12-30] MEDS ORDERED: HYDRALAZINE 20MG/ML VIAL IV PRN (21:45)
[2024-12-30] MEDS ORDERED: DEXTROSE 50% WATER 50ML SYRINGE IV PRN (21:45)
[2024-12-30] MEDS ORDERED: AMLODIPINE 5MG TABLET PO SCH (22:00)
[2024-12-30] MEDS ORDERED: CARVEDILOL 6.25 MG TABLET PO SCH (22:00)
[2024-12-30] MEDS ORDERED: IOHEXOL-350 100 ML BOTTLE ONE (23:26)
[2024-12-31] MEDS ORDERED: INSULIN LISPRO 100 UNITS/ML SUBCUT SCH (08:20)
[2024-12-31] MEDS ORDERED: BLOOD SUGAR DIAGNOSTIC STRIP TEST SCH (09:00)
== END 2024-12-30 22:11 | disposition short-term general hospital (02) ==
LOC: ER 13:47 → EDBEDREQ 21:05 → EDBEDREQTM 21:05 → ER 22:11 → CMPBEDREQ 12-31 07:55
DX: J96.01 Acute respiratory failure with hypoxia (principal); N17.9 Acute kidney failure, unspecified; J18.9 Pneumonia, unspecified organism; F12.10 Cannabis abuse, uncomplicated; E11.9 Type 2 diabetes mellitus without complications; I10 Essential (primary) hypertension; Z79.899 Other long term (current) drug therapy; Z90.49 Acquired absence of other specified parts of digestive tract; Z98.890 Other specified postprocedural states
CPT/HCPCS: 80076; 80048; 80320; 83880; 83605; 83690; 83735; 85025; 85379; 85610; 85730; 86850; 86900; 86901; 87040; 84484; 84145; 71045; 71275; 93005; 96367; 96365; 99291; Q9967; J2543; J3373; J7040; A4606; G0480